=== PATIENT | female | born 1985 | race Caucasian/White ===

== ENCOUNTER 2017-03-17 11:27 | Inpatient (IN) | payer BC, OTHER ==
[2017-03-17 12:30] LABS: Cocaine Ur Negative (NEGATIVE); Urine Barbiturate Negative (NEGATIVE); Urine Benzodiazepines Negative (NEGATIVE); Urine Opiates Negative (NEGATIVE); Urine PCP Negative (NEGATIVE); Urine THC Negative (NEGATIVE)
[2017-03-17] MEDS ORDERED: LIDOCAINE HCL 50 ML VIAL PERI PRN (13:07)
[2017-03-17] MEDS ORDERED: OXYTOCIN/DEXTROSE 5%-WATER 30 UNITS/500 ML BAG IV ONE (13:07)
[2017-03-17] MEDS ORDERED: ONDANSETRON HCL/PF 2 MG/ML VIAL IV PRN ×2 (13:07→19:39)
--- NOTE | 2017-03-17 18:18 | PN ---
Progess Note - Interim Narrative: 03/17/17 18:15 Patient rating her contractions as mild Vital signs stable with occasional mildly elevated blood pressures. Pitocin at 6 mu/min. FHT: 140 baseline, reassuring Contractions q 2-3 min Cervix: 3/50/-2, AROM-clear Impression: Intrauterine at 40 1/7 weeks augmentation of labor for mild preeclampsia Plan: Continue present plan
[2017-03-17] MEDS ORDERED: BUPIVACAINE HCL/0.9 % NACL/PF 250 ML EP PRN (19:39)
[2017-03-17] MEDS ORDERED: NALOXONE HCL 1 MG/1 ML SYRG IV PRN (19:39)
[2017-03-17] MEDS ORDERED: BUPIVACAINE HCL/PF 30 ML VIAL EP SCH (19:45)
[2017-03-17] MEDS: RINGER'S SOLUTION,LACTATED 1,000 ML IV ONE (19:57)
[2017-03-17] MEDS: DEXTROSE 5%-LACTATED RINGERS 1,000 ML IV PRN (20:40)
--- NOTE | 2017-03-17 21:17 | OR ---
Anesthesia Procedure Note - Anesthesia Procedure Note Date of Service: 03/17/17 Narrative: Vital Signs - Last Taken Temp 36.4 C L 03/17/17 20:45 Pulse 97 03/17/17 20:45 Resp 18 03/17/17 20:45 BP 123/78 03/17/17 20:45 Pulse Ox 100 03/17/17 20:45 03/17/17 21:16 ANESTHESIA PROCEDURE NOTE Date of Procedure: 03/17/2017. Time of procedure: 2254. Performed by: Horacio Bach CRNA Endoscopy Support Specialist: None. Preprocedure diagnosis: Active labor. Post procedure diagnosis: Same. Procedure: Insertion of labor epidural. Indications: The patient is a 31 -year-old female in active labor requesting labor epidural for pain management. Findings: See below. Details of the procedure: The patient was placed in a sitting position. DuraPrep as well as Betadine swabs X3 was applied to the patient's back. Patient was then draped in a sterile fashion. Lidocaine 1% was infiltrated to the skin and subcutaneous tissues at the level of the L3-4 interspace. The epidural space was identified using a 18-gauge Tuohy needle with loss-of- resistance technique. Epidural catheter was inserted to a depth of 13 centimeters at skin. Negative test dose was elicited using 3 mL of 1.5% preservative-free lidocaine plus epinephrine 1 200,000. The epidural catheter was then taped and secured in place. A loading dose of 8 mL of 0.25% preservative-free bupivacaine was administered to the epidural catheter after negative aspiration for blood and CSF. EBL: Minimal. Fluids: N/A. Specimen: N/A. Post procedure condition: The patient tolerated the procedure well. No complications were noted. Thank you for this consultation. Horacio Bach CRNA
[2017-03-18] MEDS: DEXTROSE 5%-LACTATED RINGERS 1,000 ML IV PRN ×3 (00:41→15:05)
--- NOTE | 2017-03-18 11:43 | PN ---
Progess Note - Interim Narrative: 03/18/17 11:37 Patient comfortable with epidural Vital signs stable. Pitocin at 16 mu/min. FHT: 40 baseline, reassuring Contractions q 1-1/2-4 min Cervix: Complete and pushing, at +3 station Impression: Intrauterine at 40 2/7 weeks weeks augmentation of labor for mild preeclampsia. Plan: Continue present plan. Patient laboring down at present a cousin maternal exhaustion. May need to facilitate delivery with vacuum or forceps.
[2017-03-18] MEDS: RINGER'S SOLUTION,LACTATED 1,000 ML IV ONE (12:45)
--- NOTE | 2017-03-18 13:27 | OR ---
Operative Report - Dictated Report Narrative: Indication: Maternal exhaustion Pre Procedure Patient was counseled to the risk, benefits, and alternatives to operative vaginal delivery. All questions were answered. Patient consented to proceed with operative vaginal delivery. heart rate interpretation: Reassuring, EFW 3800 mg, station +3, Position of head MEMO, Anesthesia: epidural Cervix was completely dilated and effaced, maternal- size appropriate for application, bladder was emptied Procedure Total application time of the Kiwi Pro with Palm Pump was approximately 90 seconds, maximum vacuum achieved was 500 mm Hg, number of pulls 2, number of involuntary releases 2, vacuum reduced between contractions, advancement in station with each pull, degree of rotation 0-45. Because of abundance of hair and inability to obtain a good suction further attempts at vacuum extraction were abandoned. The patient was counseled on one further attempt with the vacuum, trying forceps, or proceeding with section. Patient adamantly refused section and desired to proceed with forceps. After counseling once again on the risk, benefits, and alternatives to forceps we proceeded. Mcrae/Luikart forceps were easily applied, hinge/lock approximated without difficulty, 2 pulls (one with each contraction), advancement in station with each pull, degree of rotation 0-45. The forceps were removed after the head cleared the pubic bone. The perineum was intact at this time. Post Procedure Viable female born at 1224 on 03/18/2017 with Apgars 9 and 9, weighing 3403 g in MEMO position with right leg cord 1 and terminal meconium. Cord gases not collected, no shoulder dystocia, small erythema noted on bilateral temporal regions and scalp of fetus Placenta spontaneously delivered EBL - excessive bleeding estimated to be 400 mL due to uterine atony which responded to Pitocin 30 mU/m, uterine massage, and Cytotec 400 g rectally Lacerations: Third degree vaginal laceration occurred with final expulsion of head and shoulders and was repaired with 0 Vicryl and 3-0 Vicryl Rapide History for MU Definition: * The number of deliveries resulting in a live the patient experienced prior to current hospitalization * The previous delivery of live twins or any live multiple gestation is considered one live event. *If primagravida or nulliparous is documented select zero for the number of previous live births. Live Events: 0
[2017-03-18] MEDS ORDERED: GLYCERIN/WITCH HAZEL LEAF 40 APPL BOX TP PRN (13:38)
[2017-03-18] MEDS ORDERED: BISACODYL 10 MG SUPP.RECT RC PRN (13:38)
[2017-03-18] MEDS ORDERED: HYDROCORTISONE 30 APPL TUBE TP PRN (13:38)
[2017-03-18] MEDS ORDERED: BENZOCAINE/MENTHOL 81 SPRAY CAN TP PRN (13:38)
[2017-03-18] MEDS ORDERED: SENNOSIDES 8.6 MG TABLET PO PRN (13:38)
[2017-03-18] MEDS ORDERED: MISOPROSTOL 200 MCG TABLET PO SCH (13:38)
[2017-03-18] MEDS ORDERED: OXYTOCIN/DEXTROSE 5%-WATER 30 UNITS/500 ML BAG IV ONE (13:38)
[2017-03-18] MEDS: oxyCODONE HCL/ACETAMINOPHEN 1 TAB TABLET PO PRN ×2 (16:09→20:50)
[2017-03-18] MEDS: IBUPROFEN 800 MG TABLET PO PRN (16:09)
[2017-03-18] MEDS: DOCUSATE SODIUM 100 MG CAPSULE PO SCH (20:50)
[2017-03-19] MEDS: IBUPROFEN 800 MG TABLET PO PRN ×4 (01:11→20:12)
[2017-03-19] MEDS: oxyCODONE HCL/ACETAMINOPHEN 1 TAB TABLET PO PRN ×2 (04:21→07:25)
[2017-03-19] MEDS: DOCUSATE SODIUM 100 MG CAPSULE PO SCH ×3 (07:25→20:12)
--- NOTE | 2017-03-19 11:31 | PN ---
Subjective - Date and Time Seen Date: 03/19/17 Time: 11:30 Objective - Vitals Vitals: Last Vital Signs Temp 36.4 C L 03/19/17 07:00 Pulse 86 03/19/17 07:00 Resp 18 03/19/17 07:00 BP 105/64 03/19/17 07:00 Pulse Ox 100 03/19/17 07:00 Patient denies complaints. Lochia wnl Abdomen - soft, nontender Uterus - firm, at umbilicus - 1 No calf tenderness Impression: day #1 - s/p spontaneous vaginal delivery. Third degree vaginal laceration healing appropriately. Plan: Continue routine care. Continue stool softeners and use pain medication sparingly Cauti Physician Documentation - Urinary Catheter Management Urethral ([facility]) Date of Insertion: 03/17/17 Time of Insertion: 22:00
[2017-03-19 19:29] VITALS: BP 113/66
[2017-03-20] MEDS: IBUPROFEN 800 MG TABLET PO PRN ×2 (02:44→08:48)
--- NOTE | 2017-03-20 07:26 | PN ---
Subjective - Date and Time Seen Date: 03/20/17 Time: 07:25 Objective - Vitals Vitals: Last Vital Signs Temp 36.3 C L 03/20/17 07:24 Pulse 86 03/20/17 07:24 Resp 18 03/20/17 07:24 BP 113/66 03/20/17 07:24 Pulse Ox 98 03/20/17 07:24 Patient denies complaints. Lochia wnl Abdomen - soft, nontender Uterus - firm, at umbilicus - 2 No calf tenderness Impression: day #2 - s/p spontaneous vaginal delivery. Mild preeclampsia-resolved Plan: Routine discharge instructions. Follow-up in the office in 2 weeks for blood pressure check. Cauti Physician Documentation - Urinary Catheter Management Urethral ([facility]son) Date of Insertion: 03/17/17 Time of Insertion: 22:00
[2017-03-20] MEDS: DOCUSATE SODIUM 100 MG CAPSULE PO SCH (08:48)
== END 2017-03-20 13:45 | disposition home or self-care (01) | DRG 774 ==
LOC: OB 11:27
PROVIDERS: ADMIT Obstetrics & Gynecology; ATTEND Obstetrics & Gynecology
PROC: 10D07Z4 Extraction of Products of Conception, Mid Forceps, Via Natural or Artificial Opening (ICD-10-PCS; principal; 2017-03-18)
PROC: 0DQR0ZZ Repair Anal Sphincter, Open Approach (ICD-10-PCS; 2017-03-18)
PROC: 4A1HXCZ Monitoring of Products of Conception, Cardiac Rate, External Approach (ICD-10-PCS; 2017-03-18)
DX: O14.04 Mild to moderate pre-eclampsia, complicating childbirth (principal); O72.1 Other immediate postpartum hemorrhage; O75.81 Maternal exhaustion complicating labor and delivery; O69.81X0 Labor and delivery complicated by cord around neck, without compression, not applicable or unspecified; O77.0 Labor and delivery complicated by meconium in amniotic fluid; O70.20 Third degree perineal laceration during delivery, unspecified; O66.5 Attempted application of vacuum extractor and forceps; Z3A.40 40 weeks gestation of pregnancy; Z37.0 Single live birth